=== PATIENT | male | born 1990 | race Caucasian/White ===

== ENCOUNTER 2017-08-16 22:52 | Emergency (ER) ==
[2017-08-16 22:54] VITALS: BP 137/85; TEMP 99.2; BMI 22.9
[2017-08-16] MEDS ORDERED: ANUCORT-HC RC STA (23:08)
--- NOTE | 2017-08-16 23:49 | ED.PDOC ---
General ED Provider: Dr. SAMINA MCLEAN Chief Complaint: Non-specific Complaint Stated Complaint: Patient states that he has one or two hemorrhoids that have become increasingly painful. He states that he has had them in the past but not this bad. The pain has not gone away. Time Seen by Physician: 23:00 Mode of Arrival: Walk-In Information Source: Patient Exam Limitations: No limitations Nursing and Triage Documentation Reviewed and Agree: Yes Review of Systems - Review Of Systems Constitutional: Reports: No symptoms Eyes: Reports: No symptoms Ears, Nose, Mouth, Throat: Reports: No symptoms Respiratory: Reports: No symptoms Cardiac: Reports: No symptoms GI: Reports: No symptoms : Reports: Other (hemorroid pain ) Musculoskeletal: Reports: No symptoms Skin: Reports: No symptoms Neurological: Reports: No symptoms Endocrine: Reports: No symptoms Hematologic/Lymphatic: Reports: No symptoms All Other Systems: Reviewed and Negative Past Medical History - Past Medical History Previously Healthy: Yes Endocrine: Reports: None Cardiovascular: Reports: None Respiratory: Reports: None Hematological: Reports: None Gastrointestinal: Reports: None Genitourinary: Reports: None Neuro/Psych: Reports: None Musculoskeletal: Reports: None Cancer: Reports: None - Surgical History General Surgical History: Reports: None - Family History Family History: Reports: None - Social History Smoking Status: Never smoker Hx Substance Use: No Alcohol Screening: Occasionally - Immunizations Tetanus Shot up to Date: Yes Physical Exam - Physical Exam Appearance: Ill-appearing Ill-appearing: Mild Pain Distress: Severe Neck: Supple Respiratory: Airway patent, Breath sounds clear, Breath sounds equal, Respirations nonlabored Cardiovascular: RRR, Pulses normal, No rub, No murmur GI/: Soft, Tender (rectal area. ) Musculoskeletal: Normal strength, ROM intact, No edema, No calf tenderness Skin: Warm, Dry, Normal color Neurological: Sensation intact, Motor intact, Reflexes intact, Cranial nerves intact, Alert, Oriented Psychiatric: Anxious Re-Evaluation - Re-Evaluation Time of Re-Evaluation: 00:23 Status: Improved Pain Level: much better Critical Care Note - Critical Care Note Total Time (mins): 0 Course - Course Orders, Labs, Meds: Orders Category Date Time Status Hydrocortisone Acetate [Anucort-Hc] MEDS 08/16/17 23:08 Discontinued 1 supp RC ONCE STA Lidocaine/Prilocaine [Emla Cream] MEDS 08/16/17 23:55 Discontinued 1 applic TP ONCE STA Medications Discontinued Medications Generic Name Dose Route Start Last Admin Trade Name Adela PRN Reason Stop Dose Admin Hydrocortisone Acetate 1 supp 08/16/17 23:08 08/16/17 23:25 Anucort-Hc RC 08/16/17 23:09 1 supp ONCE STA Administration Lidocaine/Prilocaine 1 applic 08/16/17 23:55 08/17/17 00:09 Emla Cream TP 08/16/17 23:56 1 gm ONCE STA Administration Vital Signs: Temp Pulse Resp BP Pulse Ox 08/16/17 22:52 99.2 F 65 16 137/85 99 Departure - Departure Time of Disposition: 00:16 Disposition: HOME SELF-CARE Discharge Problem: Acute hemorrhoid Instructions: Thrombosed Hemorrhoid (ED) Condition: Fair Pt referred to PMD for follow-up: Yes Additional Instructions: Follow up with Surgery to have them removed. May call [facility] ([phone]) Dr Lisa Nixon Use hemorrhoidal suppositories as needed 4 times a day Prescriptions: Hydrocortisone Acetate [Anucort-Hc] 1 supp RC TID PRN #30 supp.rect PRN Reason: Hemorroids Lidocaine [Rectasmoothe] 30 gm TP TID PRN #90 cream..g. PRN Reason: Hemorroidal pain Tramadol HCl [Ultram] 50 mg PO Q6H PRN #14 tablet PRN Reason: Severe Pain Allergies/Adverse Reactions: Allergies No Known Allergies Allergy (Unverified 08/16/17 22:54) Home Medications: Ambulatory Orders Hydrocortisone Acetate [Anucort-Hc] 1 supp RC TID PRN #30 supp.rect 08/17/17 Lidocaine [Rectasmoothe] 30 gm TP TID PRN #90 cream..g. 08/17/17 Tramadol HCl [Ultram] 50 mg PO Q6H PRN #14 tablet 08/17/17 Disposition Discussed With: Patient
[2017-08-16] MEDS ORDERED: EMLA CREAM TP STA (23:55)
== END 2017-08-17 00:27 | disposition home or self-care (01) ==
LOC: ED 22:52
DX: K64.9 Unspecified hemorrhoids (principal)
CPT/HCPCS: 99283